=== PATIENT | male | born 1965 | race Caucasian/White ===

== ENCOUNTER 2016-11-08 17:39 | Emergency (ER) | payer OTHER | END 2016-11-08 19:20 | disposition home or self-care (01) | LOC: ER 17:39 | DX: M51.36 Other intervertebral disc degeneration, lumbar region (principal); W17.89XA Other fall from one level to another, initial encounter; F17.210 Nicotine dependence, cigarettes, uncomplicated; G89.29 Other chronic pain; M54.9 Dorsalgia, unspecified; F31.9 Bipolar disorder, unspecified | CPT/HCPCS: 72131; 99283-25 ==